=== PATIENT | female | born 1980 | race Hispanic/Latino ===

== ENCOUNTER 2019-07-21 13:11 | Emergency (ER) | payer OTHER ==
[2019-07-21] MEDS ORDERED: ONDANSETRON HCL 4 MG/2 ML VIAL ONE (13:56)
[2019-07-21] MEDS ORDERED: FAMOTIDINE/PF 20 MG/2 ML VIAL IV ONE (13:57)
[2019-07-21] MEDS ORDERED: SODIUM CHLORIDE 0.9% 1000ML 1,000 ML IV ONE ×3 (13:58→15:45)
[2019-07-21 14:05] LABS: BASOPHILS % (AUTO) 0.2 % (0.0-5.0); EOSINOPHILS % (AUTO) 0.1 % (0.0-8.0); HEMATOCRIT 43.6 % (36-48); MEAN CORPUSCULAR HEMOGLOBIN 29.5 pg (27.0-33.0); MEAN CORPUSCULAR HGB CONC 35.1 g/dL (32.0-36.0); NEUTROPHILS % (AUTO) 92.3 % (40.0-77.0); PLATELET COUNT (AUTO) 364 K/uL (130-400); RED BLOOD CELL COUNT(AUTO) 5.19 MIL/uL (4.00-5.50); RED CELL DISTRIBUTION WIDTH 12.9 % (11.0-15.5); WHITE BLOOD COUNT (AUTO) 13.5 K/uL (4.8-10.8)
[2019-07-21 14:20] LABS: CREATININE 0.2 mg/dL (0.5-1.5); POTASSIUM 3.3 mmol/L (3.5-5.1)
[2019-07-21 14:31] LABS: ALBUMIN 3.9 g/dL (3.5-5.0); BILIRUBIN,TOTAL 0.6 mg/dL (0.2-1.0); TOTAL PROTEIN, SERUM 8.3 g/dL (6.0-8.3)
[2019-07-21 15:00] LABS: BAND NEUTROPHILS % (MANUAL) 13 % (0-2); BASOPHILS % (MANUAL) 1 % (0-2); LYMPHOCYTES % (MANUAL) 3 % (22-44); MONOCYTES % (MANUAL) 4 % (2-9); REACTIVE LYMPHOCYTES 2 % (0-0); SEGMENTED NEUTROPHILS % 77 % (40-70)
[2019-07-21 15:01] LABS: MAN.DIFF COMMENT-IMPRESSION MANUAL DIFFERENTIAL; PLATELET MORPHOLOGY COMMENT ADEQUATE
[2019-07-21 15:13] LABS: APPEARANCE,URINE Clear (CLEAR); BILIRUBIN,URINE Negative (NEGATIVE); COLOR,URINE Yellow (YELLOW); GLUCOSE, URINE (UA) Negative (NEGATIVE); KETONES,URINE 15 mg/dL (NEGATIVE); LEUKOCYTE ESTERASE ,URINE Negative (NEGATIVE); NITRATE,URINE Negative (NEGATIVE); OCCULT BLOOD,URINE Nonhemolyzed Trace (NEGATIVE); PH,URINE 8.5 (5.0-8.0); PROTEIN,URINE POS 1+ mg/dL (NEGATIVE); UROBILINOGEN,URINE 0.2 mg/dL (0.2-1.0)
[2019-07-21 15:44] LABS: BACTERIA,URINE Few /HPF (None Seen); WBC,URINE 0-1 /HPF (0-1)
[2019-07-21] MEDS ORDERED: KETOROLAC TROMETHAMINE 30MG/ML ONE (15:44)
[2019-07-21] MEDS ORDERED: LEVOFLOXACIN 500 MG/D5W 100 ML 100 ML ONE (15:44)
== END 2019-07-21 17:01 | disposition home or self-care (01) ==
LOC: EDH 13:11
DX: K52.9 Noninfective gastroenteritis and colitis, unspecified (principal); E86.0 Dehydration
CPT/HCPCS: 36415; 80053; 81001; 82270; 82550; 83630; 83690; 84484; 84702; 85025; 86677; 87040 ×2; 87046; 87804 ×2; 93005; 96361; 96365; 96375; 99284; J1885; J1956; J2405; J3490; J7030 ×3